=== PATIENT | female | born 1995 | race Two or more races ===

== ENCOUNTER 2022-01-05 08:09 | Emergency (ER) | payer OTHER, SELFPAY ==
--- NOTE | ~2022-01-05 | XR_ITS ---
EXAMINATION: XR FINGER, RIGHT CLINICAL INFORMATION: Evaluate for fracture COMPARISON: None TECHNIQUE: Three views of the right thumb. FINDINGS: No acute visible fracture or dislocation. Joint spaces and alignment are maintained. Soft tissues are unremarkable. XR/XR finger RT min 2V IMPRESSION: No acute visible fracture or dislocation.
[2022-01-05 08:17] VITALS: BP 126/81; PULSE 75; RESP 18; TEMP 36.8; O2SAT 100; BMI 24.7
--- NOTE | 2022-01-05 09:22 | ED.GENADULT ---
HPI - General Adult General Chief complaint: Extremity Problem Stated complaint: closed car door on thumb Time Seen by Provider: 01/05/22 09:18 Source: patient Mode of arrival: ambulatory Limitations: no limitations History of Present Illness HPI narrative: Patient is a 26 year old female presenting to the emergency department today with right thumb pain. Patient states that she accidentally closed her right thumb in her car door. Patient states that she does not know when her last tetanus shot was. Patient denies any dizziness, lightheadedness, abdominal pain, nausea, vomiting, fever, chills, blurry vision, double vision, loss of vision, chest pain, difficulty breathing, shortness of breath, back pain, night sweats, pain with urination, increased urinary frequency, increased urinary urgency, blood in her urine or stool, syncope or a near syncopal episode, recent trauma or falls, bowel incontinence, bladder incontinence, bowel retention, bladder retention, or any other complaints at this time. Onset (ago): hour(s) Location: right and upper extremity (thumb) Radiation: non-radiation Severity: mild Severity scale (1-10): 3 Quality: aching and dull Pain Consistency: constant Relieving factors: none Exacerbating factors: movement Associated symptoms: denies other symptoms Treatments prior to arrival: none Related Data Allergies Allergy/AdvReac Type Severity Reaction Status Date / Time Penicillins [PENICILLINS] Allergy Unknown UNKNOWN Unverified 12/27/19 16:25 Review of Systems Constitutional: Constitutional: Reports no additional constitutional complaints, Denies chills, Denies fever(s) and Denies night sweats Eyes: Eyes: Reports no additional eye complaints, Denies blurry vision, Denies change in vision, Denies diplopia, Denies eye discharge, Denies loss of vision and Denies eye pain ENT: Denies dizziness Cardiovascular: Cardiovascular: Reports no additional cardiovascular complaints, Denies chest pain, Denies lightheadedness, Denies Loss of Consciousness and Denies dyspnea Respiratory: Respiratory: Reports no additional respiratory complaints and Denies dyspnea Gastrointestinal: Gastrointestinal: Reports no additional gastrointestinal complaints, Denies abdominal pain, Denies melena, Denies hematochezia, Denies change in bowel habits and Denies change in stool character Genitourinary: Genitourinary: Denies hematuria, Denies urinary frequency, Denies dysuria, Denies urinary incontinence, Denies urinary hesitancy and Denies urinary urgency Musculoskeletal: Musculoskeletal: Reports no additional musculoskeletal complaints, Denies numbness and Denies tingling Comments: right thumb pain Neurologic: Denies dizziness, Denies loss of vision, Denies numbness and Denies tingling Psychiatric: Psychiatric: Reports no additional psychiatric complaints Endocrine: Endocrine: Reports no additional endocrine complaints Hematologic/Lymphatic: Hematologic/Lymphatic: Reports no additional hematologic/lymphatic complaints Allergic/Immunologic: Allergic/Immunologic: Reports no additional allergic/immunologic complaints [facility] Past Medical History Attestation statement: The following information was validated with the patient. Source: old records reviewed Social History Social History Advance Directives: No Physical Exam ED Vital Signs: Vital Signs - 24 hr 01/05/22 08:17 Temperature 98.3 F Pulse Rate 75 Respiratory Rate 18 Blood Pressure 126/81 Pulse Oximetry 100 Oxygen Delivery Method Room Air BMI result Body Mass Index 24.7 Const General: cooperative, no acute distress, alert and awake Nutritional Appearance: well nourished Orientation/consciousness: patient oriented x3 Limitations: no limitations HENMT Head: Yes normal to inspection and Yes atraumatic Ears: hearing grossly normal bilaterally and external ears normal General nose exam: Normal external nose present, no nasal discharge noted and no epistaxis Face and sinus: Yes normal facial exam, No abrasion and No laceration Mouth: Normal oral and palatal mucosa present, no drooling and no muffled voice Eyes General: appearance normal, both eyes and all related structures Periorbital: periorbital findings normal Eyelids: Yes eyelids normal Conjunctivae: conjunctivae normal Pupils: Equal, round and reactive pupils present EOM: EOMs intact bilaterally Neck Neck: Yes normal visual inspection, Yes full ROM and Yes no lymphadenopathy Chest Chest palpation & inspection: normal inspection of the chest Resp Effort & Inspection: normal respiratory effort and able to speak in complete sentences Auscultation: clear to auscultation bilaterally Cardio Rate: regular rate Rhythm: regular rhythm GI Inspection: Yes normal to inspection Neuro General: patient oriented x3 and moves all extremities Cranial nerves: Yes Equal, round and reactive pupils present Cognition (Neuro): normal cognition Motor exam (neuro): 5/5 motor strength present throughout Sensory Exam: Normal double simultaneous stimulation for sensation Coordination: [id number] test normal Extrem Other: small abrasion just proximal to the nail bed of the right thumb General: Yes full ROM and Yes capillary refill normal Psych Appearance: grossly normal Mental Status: mental status grossly normal Affect: normal affect Attitude: cooperative Thought process: Normal thought process present Thought content: Normal thought content present Insight: Good insight present (Psych) Medical Decision Making MDM Narrative Medical decision making narrative: Patient is a 26 year old female presenting to the emergency department today with right thumb pain. Patient's physical exam showed a small abrasion just proximal to the right thumb nail bed with no active bleeding. Patient's right thumb x-ray showed no acute process. I explained my physical exam findings as well as all test results to the patient. I answered all questions asked by the patient. Patient was brought up to date on tetanus. I stressed the importance of the patient taking her medication as prescribed. I stressed the importance of the patient following up with her primary care provider and if pain persists, an prevention specialist. I stressed the importance of the patient returning to the emergency department immediately if her symptoms were to worsen or if she were to develop any dizziness, shortness of breath, difficulty breathing, chest pain, blurry vision, loss of vision, nausea, vomiting, abdominal pain, fever, chills, back pain, or any other complaints. Patient verbalized agreement and understanding with this treatment plan and discharge. Differential Diagnosis Differential Diagnosis: thumb injury Medical Records Medical records reviewed: Yes I reviewed the patient's medical records. Imaging Data Right thumb x-ray: Attestation: I personally reviewed and interpreted this imaging study as follows: My impression: No acute fracture. Radiologist's impression: EXAMINATION: XR FINGER, RIGHT CLINICAL INFORMATION: Evaluate for fracture? COMPARISON: None? TECHNIQUE: Three views of the right thumb. FINDINGS: No acute visible fracture or dislocation. Joint spaces and alignment are maintained. Soft tissues are unremarkable.? XR/XR finger RT min 2V IMPRESSION: No acute visible fracture or dislocation. Dictated By: Minnie Aguirre MD Signed By: Electronically signed by Minnie Aguirre MD 01/05/22 0914 Discharge Plan Discharge Clinical Impression: Crush injury to thumb Patient Disposition: Home, Self-Care Instructions: Crush Injury (ED) Additional Instructions: Follow up with your primary care provider. If pain persists over 14 days, follow up with an orthopedic provider. Return to the emergency department immediately if your symptoms worsen or if you develop any dizziness, shortness of breath, difficulty breathing, chest pain, blurry vision, loss of vision, nausea, vomiting, abdominal pain, fever, chills, back pain, or any other complaints. Referrals: [facility] [place] Family Medicine [Provider Group] (Call to establish and follow up with a primary care provider. If you already have a primary care provider, please follow up with them. ) [facility] [place] Primary Care, [facility] [Provider Group] (Call to establish and follow up with a primary care provider. If you already have a primary care provider, please follow up with them. ) [facility] [place] [facility] (Call to establish and follow up with a primary care provider. If you already have a primary care provider, please follow up with them. ) [facility] [place] [facility] Surgeons [Provider Group] (If pain persists over 14 days, call to establish and follow up with an orthopedic provider. ) [facility] [Physician] - (Call to establish and follow up with a primary care provider. If you already have a primary care provider, please follow up with them. ) Stand Alone Forms: Work/School Release Discharge Date/Time: 01/05/22 09:44 Print Language: Khmer
[2022-01-05] MEDS: Diphth,Pertus(ACell),Tet Adult 0.5 ML SYRINGE IM (09:31)
== END 2022-01-05 09:44 | disposition home or self-care (01) ==
PROVIDERS: Emergency Provider Emergency Medicine
DX: S67.01XA Crushing injury of right thumb, initial encounter (principal); S60.511A Abrasion of right hand, initial encounter; Y29.XXXA Contact with blunt object, undetermined intent, initial encounter; Y93.9 Activity, unspecified; Y92.9 Unspecified place or not applicable; Y99.9 Unspecified external cause status
CPT/HCPCS: 73140; 90471; 90715; 99281; 99284

== ENCOUNTER 2022-09-07 16:21 | Outpatient (REF) | payer OTHER, SELFPAY ==
[2022-09-07 16:53] LABS: MANUAL DIFF FLAG NO
[2022-09-07 17:38] LABS: Basophils Percent Auto 0.8 % (0-2); Eosinophils Absolute Auto 0.1 X10*3/uL (0.0-0.4); Eosinophils Percent Auto 1.3 % (0-4); Hematocrit 39.1 % (37.0-47.0); Hemoglobin 12.7 g/dl (12.0-16.0); Imm Gran Abs Auto 0.01 X10*3/uL (0.00-0.03); Imm Gran Pct Auto 0.2 % (0.0-0.4); Lymphocytes Absolute Auto 2.1 X10*3/uL (1.2-4.9); Lymphocytes Percent Auto 40.5 % (20-40); Mean Corpuscular HGB Conc 32.5 g/dl (31.0-35.0); Mean Corpuscular Hemoglobin 30.7 pg (27.0-33.0); Mean Corpuscular Volume 94.4 fL (80.0-98.0); Mean Platelet Volume 11.4 fL (9.4-12.3); Monocytes Absolute Auto 0.5 X10*3/uL (0.1-1.2); Monocytes Percent Auto 9.6 % (2-11); Neutrophils Absolute Auto 2.5 x10*3/uL (2.0-8.3); Neutrophils Percent Auto 47.6 % (45-73); Platelet Count 208 X10*3/uL (160-400); Red Blood Count 4.14 X10*6/uL (4.20-5.50); Red Cell Distribution Width 13.2 % (11.0-16.0); White Blood Count 5.3 X10*3/uL (4.8-10.8)
[2022-09-07 18:25] LABS: Alanine Aminotransferase 15 U/L (0-31); Albumin Level 3.8 g/dL (3.5-5.0); Aspartate Amino Transferase 17 U/L (5-31); Estimated Glomerular Filt Rate > 60
[2022-09-08 01:48] LABS: Syphilis Screen Nonreactive (Nonreactive)
[2022-09-08 07:51] LABS: HBS Num1 25.97 mIU/mL (0-7.99); HBc Num1 0.11 S/CO (0.00-0.79); HBsAGNum1 0.34 S/CO (0.00-0.99); HIV AB/AG Nonreactive (Nonreactive); HIV Num 1 0.07 S/CO (0.00-0.99); Hepatitis B Core Antibody Nonreactive (Nonreactive); Hepatitis B Surface Antigen Negative (Negative); ~Hepatitis B Surface Antibody REACTIVE (Nonreactive)
[2022-09-10 14:58] LABS: HCV RNA PCR Qn <1.18 NOT DETECTED Log IU/mL (NOT DETECTED); HCV RNA PCR Qn <15 NOT DETECTED IU/mL (NOT DETECTED)
[2022-09-15 01:59] LABS: FIB-ALT 11 U/L (6-29); FIB-Alpha-2-Macroglobulin 207 mg/dL (106-279); FIB-Apolipoprotein A1 126 mg/dL (101-198); FIB-GGT 7 U/L (3-40); FIB-Haptoglobin 162 mg/dL (43-212); FIB-Total Bilirubin 0.1 mg/dL (0.2-1.2); Liver Fibrosis Score 0.02; Liver Fibrosis Stage F0; Nec Inflam Act Grade A0; Nec Inflam Act Score 0.02
== END 2022-09-07 16:22 | disposition home or self-care (01) ==
LOC: HO.LAB 16:21
PROVIDERS: Visit Provider Internal Medicine Infectious Disease
DX: Z11.4 Encounter for screening for human immunodeficiency virus [HIV] (principal); B19.20 Unspecified viral hepatitis C without hepatic coma
CPT/HCPCS: 36415; 81596; 82040; 82565; 84450; 84460; 85025; 86704; 86706; 86780; 87340; 87389; 87522; 87902